=== PATIENT | male | born 1960 | race Caucasian/White ===

== ENCOUNTER 2017-02-01 06:17 | Inpatient (IN) ==
[2017-02-01] MEDS ORDERED: *HR* Heparin 5,000 UNIT/ML VIAL ONE (06:44)
[2017-02-01] MEDS ORDERED: Lidocaine -MPF 2% 2 ML VIAL ONE ×2 (06:44→07:50)
[2017-02-01] MEDS ORDERED: *HR* Phenylephrine 10 MG/ML VIAL ONE ×2 (06:44→10:11)
[2017-02-01] MEDS ORDERED: *HR* FentaNYL (PF) 100 MCG/2 ML VIAL ONE (06:50)
[2017-02-01] MEDS ORDERED: *HR* Midazolam HCl 5 MG/5 ML VIAL IVP ONE (06:50)
[2017-02-01] MEDS ORDERED: *HR* Propofol 200 MG/20 ML VIAL IVP ONE (06:50)
[2017-02-01] MEDS ORDERED: Heparin 1,000 UNITS/500 mL NS 500 ML ONE (06:59)
[2017-02-01] MEDS ORDERED: CeFAZolin Pre 2,000 MG/100 ML 2,000 MG/100 ML BAG IVPB ONE (07:02)
[2017-02-01] MEDS ORDERED: Vancomycin 1,500 MG in D5% in Water 250 ML IVPB ONE ×3 (07:02→20:00)
--- NOTE | 2017-02-01 07:12 | Anesthesia Evaluation PreOp ---
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42) [employer] History: Other (benign brain tumor, causes no problems) Other Medical History: Diabetes Type II, GERD Alcohol Use: none Drug use: none Medications and Allergies Aspirin [Lo-Dose Aspirin EC] 81 mg PO DAILY 01/03/17 [History] Atorvastatin [Lipitor] 40 mg PO DAILY 01/03/17 [History] Cyclobenzaprine [Flexeril] 10 mg PO TID PRN 01/03/17 [History] Gabapentin [Neurontin] 800 mg PO TID 01/03/17 [History] Lisinopril [Zestril] 20 mg PO DAILY 01/03/17 [History] Nitroglycerin 0.4 mg SL Q5MIN PRN 01/03/17 [History] Nystatin [Nystatin Suspension] 100,000 units PO QID 01/03/17 [History] Tamsulosin [Flomax] 0.4 mg PO DAILY 01/03/17 [History] Varenicline Tartrate [Chantix] 1 each PO DAILY 01/03/17 [History] amLODIPine [Norvasc] 10 mg PO DAILY 01/03/17 [History] hydroCHLOROthiazide [Hydrochlorothiazide] 25 mg PO DAILY 01/03/17 [History] metFORMIN [Glucophage] 1,000 mg PO BIDWM 01/03/17 [History] HYDROcodone/Acet 5/325 mg [[place] 5-325 mg] 1 tab PO Q4H PRN #20 tab 01/24/17 [Rx ] No Known Allergies Allergy (Verified 01/24/17 06:40) - Meds/Allergy Pre-op Review Medications Reviewed: Yes Allergies Reviewed: Yes Beta Blockers on Current Med List: No Anesthesia Results - Labs Laboratory Tests 01/08/17 01/25/17 21:21 07:59 Hgb 12.5 L Hct 37.6 Plt Count 238 Sodium 140 Potassium 3.7 BUN 19 Creatinine 1.43 H - Imaging EKG: report reviewed Additional studies: nuclear stress test December 2016 shows fixed inferior defect, no active ischemia, EF 57% Anesthesia Exam Selected Entries 02/01/17 06:51 Temperature 98.3 F Pulse Rate 96 Respiratory Rate 16 Blood Pressure 139/87 O2 Sat by Pulse Oximetry 96 Weight: 104kg NPO (# of Hours): 8 Pain Scale: 0 Pain Scale Used: Numeric (1 - 10) - HEENT Pupil (Motor): EOMI Mallampati: I Teeth: Edentulous Oral Opening: Greater than 3 - [employer] LOC: Oriented [employer] Motor: Deficit RUE, Deficit LUE, Deficit RLE, Deficit LLE, Deficit Face [employer] Sensory: Deficit: RUE, LUE, RLE, LLE, Face - Cardiac Rhythm: Regular Murmur: None - Pulmonary Breath Sounds: bilateral Clear Respiratory Effort: Symmetrical Anesthesia Assess/Plan ASA Score: 3 Modified Melissa Scale for Level of Consciousness: Cooperative, oriented, and tranquil Anesthetic Plan: General Monitoring Plan: Standard Monitors, A-Line Recovery Plan: PACU (Discussed risks of GA, arterial line, questions answered and agrees to proceed.)
[2017-02-01] MEDS ORDERED: Heparin 1,000 UNITS/500 mL NS 1,000 ML ONE (07:17)
[2017-02-01] MEDS ORDERED: Albuterol 2.5 MG/3 ML NEBULIZER IH ONE (07:19)
[2017-02-01] MEDS ORDERED: Albuterol 2.5 MG/3 ML NEBULIZER ONE (07:20)
[2017-02-01] MEDS: Plasma-Lyte A (PH 7.4) 1,000 ML IVC SCH ×2 (07:25→10:24)
--- NOTE | 2017-02-01 07:30 | History & Physical Report ---
Date of Encounter: 02/01/17 Time of Encounter: 07:28 24 Hour HP Update - Instructions Instructions: If the History and Physical is less than 30 days old and was completed prior to A.M. admission and or procedure and has NOT been updated on calendar day of procedure please complete this update prior to performing procedure. - Update Patient reports changes in Medical Condition: No Changes in examination, assessment, or condition: No Changes in Medication: No Preop tests/diagnostics Reviewed: Yes Surgery Remains Indicated: Yes Consent for Planned Operative Procedure(s) Verified: Yes - Pre-Operative Checklist Preoperative Checklist Indicated: Yes Prophylactic Antibiotic Ordered: Yes (vancomycin due to MRSA risk) Home Medications Include Beta Christina: No Beta Christina Taken Today (Day of Surgery): No Beta Christina Taken Yesterday (Day Prior to Surgery): No Is VTE Prophylaxis Indicated?: Yes
--- NOTE | 2017-02-01 09:08 | Anesthesia Procedures ---
Date of Encounter: 02/01/17 Time of Encounter: 07:50 Procedures: Anesthesia - Arterial Line Consent obtained: written consent Time out performed: Yes Sedation: Versed (mg): 5 Sedation: Fentanyl (mcg): 100 Local Anesthetic: Lidocaine 1% Amount of Anesthetic used (mls): 1 Size (Gauge): 20 Length (inches): 1 3/4 Technique Used: sterile prep, guide wire technique, direct puncture technique Post-Procedure: line taped into place, dry sterile dressing placed Patient tolerated procedure: well, no complications Complications: none Site: Radial L
[2017-02-01] MEDS ORDERED: Dexamethasone 4 MG/ML VIAL ONE (10:17)
[2017-02-01] MEDS ORDERED: Ondansetron 4 MG/2 ML VIAL ONE (10:17)
[2017-02-01] MEDS ORDERED: *HR* Promethazine 25 MG/ML VIAL IVP PRN (11:53)
[2017-02-01] MEDS ORDERED: *HR* Meperidine 25 MG/ML SYRINGE IVP PRN (11:53)
[2017-02-01] MEDS ORDERED: Ringers Solution, Lactated 1,000 ML ONE (11:53)
[2017-02-01] MEDS ORDERED: Ondansetron 4 MG/2 ML VIAL IVP ONE (11:53)
[2017-02-01] MEDS ORDERED: *HR* OxyCODONE/APAP 5/325 TABLET PO PRN (11:53)
--- NOTE | 2017-02-01 11:55 | Operative Note ---
Date of procedure: 02/01/17 Pre-op diagnosis: Periperhal vascular disease with disabling claudication Post-op diagnosis: same Procedure: 1. Left femoral to popliteal artery bypass with 6mm Distaflo Small Cuff graft. 2. Left femoral endarterectomy. Complications: None Anesthesia: GETA Surgeon: Trevor Us Estimated blood loss (cc): 300 Specimen: none Condition: stable Disposition: PACU Procedure in Detail: Indications: The patient is a 56 year old male with hypertension, hyperlipidemia and diabetes who was found to have peripheral vascular disease with rest pain. He was found to have a left superficial femoral artery occlusion. Procedure: An oblique incision was made over the left groin sharply. Hemostasis was obtained with electrocautery. Through a process of blunt, sharp , and electrocautery dissection, the left femoral vessels were dissected circumferentially and surrounded with vessel loops. An incision was made on the left medial distal thigh sharply. Hemostasis was obtained with electrocautery. Through a process of blunt, sharp, and electrocautery dissection, the left above-knee popliteal artery was dissected proximally and distally and surrounded with vessel loops. A graft was tunneled between the popliteal and femoral incisions. The patient received intravenous heparin. The popliteal vessels were occluded and a longitudinal arteriotomy was made in the popliteal artery. The distal end of the graft was sutured in place with a running 6-0 Prolene, but not tied. Heparinized saline was infused into the lumen. Tension was applied to the femoral vessel loops. An arteriotomy was made in the common femoral artery and the graft was cut to fit the defect. The graft was anastamosed with a running 6 -0 Prolene. The vessels were flushed through the graft and heparin was infused into the lumen. The graft was clamped with an atraumatic clamp. Thrombin and gelfoam were used at the proximal anastamosis. The distal arterial anastomosis suture line was completed. Prior to completing the closure, the popliteal vessels were flushed and reoccluded. Heparinized saline was infused into the lumen. The anastamosis was tied and then flow was restored. Polyphasic signals were noted distal to the distal anastomosis as well as at the posterior tibial artery. The wounds were irrigated with antibiotic- containing saline. Thrombin and gelfoam were used to aid in hemostasis. Platelet rich and platelet poor plasma were infused into the wounds. Meticulous hemostasis was obtained throughout the wound with electrocautery. Wounds were reapproximated with layers of 2-0 and 3-0 Vicryl. Skin was reapproximated with 3-0 Monocryl. Sterile dressing was applied. The patient was extubated and taken to recovery room in stable condition.
[2017-02-01] MEDS ORDERED: Clindamycin 900 MG/50 ML 900 MG/50 ML IV.SOLN IVPB ONE (11:57)
[2017-02-01] MEDS ORDERED: Ringers Solution, Lactated 1,000 ML IVC SCH (12:00)
[2017-02-01 12:11] LABS: Hematocrit 29.2 % (37.5-50.1); Hemoglobin 9.5 g/dL (12.9-16.9)
--- NOTE | 2017-02-01 12:42 | Anesthesia Evaluation Post Op ---
Date of Encounter: 02/01/17 Time of Encounter: 12:41 - Vital Signs Vital Signs: Vital Signs/O2 Sat, Most Current Temp Pulse Resp BP Pulse Ox 97.4 F L 103 18 103/60 95 02/01/17 11:40 02/01/17 11:40 02/01/17 11:40 02/01/17 11:40 02/01/17 11:40 - Lungs Lungs: Clear Ascult./Percussion - Airway Airway: Non-obstructed - Cardiovascular Regular Rate - Mental Status Mental Status: Alert & Oriented, Answers Appropriately - Pain Pain Scale: 0 Pain Scale used: Numeric (1 - 10) - Nausea Vomiting Nausea Vomiting: Not Present - Hydration Hydration: Ice chips, Patel catheter - Discharge PostOp Status: Transfer Patient to floor
[2017-02-01] MEDS ORDERED: Acetaminophen 325 MG TABLET PO PRN (13:13)
[2017-02-01] MEDS ORDERED: Nitroglycerin 0.4 MG TAB.SUBL SL PRN (13:13)
[2017-02-01] MEDS ORDERED: *HR* Dextrose 50 % in Water (Syg) 50 ML SYRINGE IVP PRN (13:13)
[2017-02-01] MEDS ORDERED: D5% in Water 1,000 ML IVC PRN (13:13)
[2017-02-01] MEDS ORDERED: Dextrose Gel 15 GM PO PRN ×2 (13:13)
[2017-02-01] MEDS ORDERED: Ondansetron 4 MG/2 ML VIAL IVP PRN (13:13)
[2017-02-01] MEDS ORDERED: *HR* HYDROcodone/Acet 5/325 mg TABLET PO PRN (13:13)
[2017-02-01] MEDS ORDERED: Naloxone 0.4 MG/ML INJ IVP PRN ×2 (13:13)
[2017-02-01] MEDS ORDERED: *HR* Labetalol 20 MG/4 ML SYRINGE IVP PRN (13:13)
[2017-02-01] MEDS ORDERED: *HR* Morphine 2 MG/ML SYRINGE ONE (13:24)
[2017-02-01] MEDS: *HR* Morphine 2 MG/ML SYRINGE IVP PRN ×7 (13:30→23:10)
[2017-02-01] MEDS: *HR* OxyCODONE Immed Rel 5 MG TABLET PO PRN ×2 (14:22→20:27)
[2017-02-01] MEDS: 0.9 % Sodium Chloride 1,000 ML IVC SCH (14:22)
[2017-02-01] MEDS: Gabapentin 400 MG CAPSULE PO SCH ×2 (16:07→20:21)
[2017-02-01] MEDS: *HR* Metoprolol 5 MG/5 ML VIAL IVP SCH ×3 (16:08→23:08)
[2017-02-01] MEDS: ceFAZolin 2,000 MG in D5% in Water 100 ML IVPB SCH ×2 (16:14→23:14)
[2017-02-01] MEDS: Insulin LISPRO 300 UNITS/3 ML VIAL SQ SCH (16:15)
[2017-02-01] MEDS: *HR* Metformin 500 MG TABLET PO SCH (17:30)
[2017-02-01] MEDS ORDERED: *HR* Heparin 5,000 UNIT/ML VIAL SQ SCH (18:00)
[2017-02-01] MEDS ORDERED: Famotidine 20 MG TABLET PO ONE (19:41)
[2017-02-01] MEDS ORDERED: Mag Hydrox/Al Hydrox/Simeth 30 ML UDC PO PRN (19:42)
[2017-02-01] MEDS ORDERED: Insulin LISPRO 300 UNITS/3 ML VIAL SQ SCH (21:00)
[2017-02-02] MEDS: *HR* Morphine 2 MG/ML SYRINGE IVP PRN ×4 (04:04→13:31)
[2017-02-02 04:33] LABS: Basophils % 0.2 %; Eosinophils % 0.2 %; Hematocrit 27.8 % (37.5-50.1); Hemoglobin 8.8 g/dL (12.9-16.9); Immature Granulocytes % 0.4 % (0-4); Lymphocytes # 1.6 K/mcL (0.6-4.6); Lymphocytes % 14.6 %; Mean Corpuscular HGB Conc 31.7 g/dL (31.6-35.5); Mean Corpuscular Hemoglobin 29.3 pg (28.0-33.3); Mean Corpuscular Volume 92.7 fL (83.0-100.0); Mean Platelet Volume 9.8 fL (9.4-12.4); Monocytes # 1.2 K/mcL (0.0-1.3); Monocytes % 11.3 %; Platelet Count 241 K/mcL (140-400); Red Cell Distribution Width 13.2 % (11.5-14.5); Segmented Neutrophils % 73.3 %
[2017-02-02 04:50] LABS: BUN/Creatinine Ratio 18 (6-26); Blood Urea Nitrogen 16 mg/dL (8-26); Calcium 9.9 mg/dL (8.6-10.8); Carbon Dioxide 29 mEq/L (19-29); Chloride 102 mEq/L (98-109); Glucose 134 mg/dL (70-99); Osmolality,Calculated 287 (280-300); Potassium 4.5 mEq/L (3.5-4.5); Sodium 137 mEq/L (136-145); eGFR For African Americans > 60 (> 60); eGFR For Non-African Americans > 60 (> 60)
[2017-02-02] MEDS: *HR* Metoprolol 5 MG/5 ML VIAL IVP SCH ×2 (05:07→13:31)
[2017-02-02] MEDS: *HR* OxyCODONE Immed Rel 5 MG TABLET PO PRN ×2 (05:09→09:21)
[2017-02-02] MEDS: 0.9 % Sodium Chloride 1,000 ML IVC SCH (05:10)
[2017-02-02] MEDS ORDERED: *HR* Heparin 5,000 UNIT/ML VIAL SQ SCH (06:00)
[2017-02-02] MEDS: *HR* Metformin 500 MG TABLET PO SCH (07:34)
[2017-02-02] MEDS: Gabapentin 400 MG CAPSULE PO SCH ×2 (07:35→15:26)
[2017-02-02] MEDS: Insulin LISPRO 300 UNITS/3 ML VIAL SQ SCH ×2 (07:39→11:50)
--- NOTE | 2017-02-02 07:45 | Discharge Summary ---
Date of Encounter: 02/02/17 Time of Encounter: 07:45 - Discharge Diagnosis (1) Atherosclerosis of [place] arteries of extremities with intermittent claudication, bilateral legs Priority: Primary Status: Chronic Comments: The patient is postoperative day #1 after a left femoral endarterectomy and left femoral to popliteal artery bypass. He has palpable pedal pulses. His compartments are soft. He has no significant hematoma. He will be discharged today. (2) Essential hypertension Priority: Secondary Status: Chronic (3) Mixed hyperlipidemia Priority: Secondary Status: Chronic Comments: The patient was counsled regarding atherosclerotic risk factor reduction. (4) Type 2 diabetes mellitus with other circulatory complications Priority: Secondary Status: Chronic (5) Chronic anemia Priority: Secondary Status: Chronic Comments: The patient has chronic anemia with acute expected postoperative blood loss anemia. He is hemodynamically stable without evidence of ongoing blood loss. - Discharge Medications Prescriptions: Clopidogrel Bisulfate [Plavix] 75 mg PO DAILY #30 tablet Oxycodone HCl/Acetaminophen [Percocet 5-325 mg Tablet] 1 each PO Q4H PRN #40 tablet PRN Reason: POSTOPERATIVE PAIN Home Medications: Aspirin [Lo-Dose Aspirin EC] 81 mg PO DAILY 01/03/17 [History] Atorvastatin [Lipitor] 40 mg PO DAILY 01/03/17 [History] Cyclobenzaprine [Flexeril] 10 mg PO TID PRN 01/03/17 [History] Gabapentin [Neurontin] 800 mg PO TID 01/03/17 [History] Lisinopril [Zestril] 20 mg PO DAILY 01/03/17 [History] Nitroglycerin 0.4 mg SL Q5MIN PRN 01/03/17 [History] Tamsulosin [Flomax] 0.4 mg PO DAILY 01/03/17 [History] Varenicline Tartrate [Chantix] 1 tab PO DAILY 01/03/17 [History] amLODIPine [Norvasc] 10 mg PO DAILY 01/03/17 [History] hydroCHLOROthiazide [Hydrochlorothiazide] 25 mg PO DAILY 01/03/17 [History] metFORMIN [Glucophage] 1,000 mg PO BIDWM 01/03/17 [History] HYDROcodone/Acet 5/325 mg [[place] 5-325 mg] 1 tab PO Q4H PRN #20 tab 01/24/17 [Rx ] Acetaminophen w/Cod 300-30 mg [Tylenol w/Codeine #3] 1 tab PO BID PRN 02/01/17 [ History] Ergocalciferol (VITAMIN D2) [Vitamin D2] 50,000 unit PO WE 02/01/17 [History] Ranitidine HCl [Zantac 75] 75 mg PO DAILY 02/01/17 [History] Clopidogrel Bisulfate [Plavix] 75 mg PO DAILY #30 tablet 02/02/17 [Rx] Oxycodone HCl/Acetaminophen [Percocet 5-325 mg Tablet] 1 each PO Q4H PRN #40 tablet 02/02/17 [Rx] Allergies/Adverse Reactions: 3 Allergy/AdvReac Type Severity Reaction Status Date / Time No Known Allergies Allergy Verified 01/24/17 06:40 Date of admission: 02/01/17 13:20 Primary care physician: Eduardo Camejo MD Procedure(s) Performed: Left femoral to popliteal bypasss and left femoral endarterectomy. Discharging clinician: Trevor Us Anticipated date of discharge: 02/02/17 - Patient Status Disposition: Home, Self-Care Condition: Good Functional capacity at discharge: independent ambulation Overall status at discharge: patient is progressing back to baseline - Discharge Instructions Instructions: Oxycodone/Acetaminophen (By mouth), Clopidogrel (By mouth), Femoropopliteal Bypass (DC), Peripheral Vascular Disorders (DC) Follow Up With: Trevor Us MD [Partnered Physician] - 03/12/17 10:40 am Eduardo Camejo MD [Primary Care Provider] - 02/05/17 3:15 pm Additional Instructions: MAY REMOVE BANDAGE AND SHOWER ON 02/03/17. WASH WOUND GENTLY AND PAT TO DRY. APPLY DRY GAUZE TO WOUNDS DAILY FOR 7 DAYS. NO TUB BATHS OR SWIMMING UNTIL 03/01/17. CALL DR US AT [phone] WITH QUESTIONS OR CONCERNS. NO DRIVING FOR 7 DAYS. No lifting greater 10 pounds for 2 weeks. - Diet and Activity Activity: increase activity as tolerated Diet: diabetic diet - Hospital Course Hospital course: Mr. Cummings is a 56 year old male with peripheral vascular disease with disabling claudication. He was found to have a left superficial femoral artery occlusion. He was admitted to [facility] on 8/17/17. He underwent a left femoral to popliteal artery bypass. He tolerated the procedure well and was discharged in stable condition on postoperative day #1 without complications. - Time Spent with Patient Total time spent providing and/or coordinating discharge services: Exam Vital Signs, Last 4 Hours Temp Pulse Resp BP Pulse Ox 02/02/17 06:00 72 12 142/89 91 02/02/17 05:00 73 10 128/84 95 02/02/17 04:35 98 F 02/02/17 04:05 71 02/02/17 04:00 71 13 122/87 94 - VTE Documentation of Mechanical Device: Intermittent pneumatic compression device
[2017-02-02] MEDS ORDERED: amLODIPine 5 MG TABLET PO SCH (09:00)
[2017-02-02] MEDS ORDERED: Lisinopril 20 MG TABLET PO SCH (09:00)
[2017-02-02] MEDS ORDERED: Aspirin Enteric Coated 81 MG Tablet PO SCH (09:00)
[2017-02-02] MEDS ORDERED: hydroCHLOROthiazide 25 MG TABLET PO SCH (09:00)
[2017-02-02] MEDS ORDERED: Famotidine 20 MG TABLET PO SCH (09:00)
[2017-02-02 11:06] VITALS: BP 121/86
== END 2017-02-02 15:34 | disposition home or self-care (01) | DRG 253 ==
LOC: SAMDAY 06:17 → ICNU 13:20
PROVIDERS: ADMIT Surgery; ATTEND Surgery